=== PATIENT | male | born 1940 | race Two or more races ===

== ENCOUNTER 2018-07-14 12:39 | Emergency (ER) | payer MEDICARE ==
[2018-07-14 12:44] VITALS: BMI 27.6
[2018-07-14 12:47] VITALS: TEMP 98
--- NOTE | 2018-07-14 14:11 | ED PDOC ---
Arrival/HPI - General Time Seen by Provider: 07/14/18 12:54 Historian: Patient - History of Present Illness Narrative History of Present Illness (Text): 07/14/18 13:11 77 year old male, with past medical history of hypertension, presents to the Emergency department accompanied by son complaining of left sided hip pain since 2 weeks. Patient reports falling on his right side while shoveling snow 2 weeks ago but denies any immediate injury or discomfort at the time. Patient denies hitting his head or any loss of consciousness at the time. Patient informs experiencing pain to his left hip radiating to his left leg few days following the incident, for which he was prescribed pain medications by his PMD. As per patient, symptoms were unimproved after the pain medication prompting him to present to the Emergency department for medical evaluation. Patient denies any other associated somatic complaints. Patient denies any difficulty ambulating, fevers, chills, headache, dizziness, chest pain, shortness of breath, dyspnea on exertion, cough, abdominal pain, nausea, vomiting, diarrhea, neck pain, or any other complaints. PMD: Dr. Hagen Time/Duration: > week Symptom Onset: Gradual Symptom Course: Unchanged Quality: Aching Activities at Onset: Light Context: Home Past Medical History - Provider Review Nursing Documentation Reviewed: Yes - Infectious Disease Hx of Infectious Diseases: None - Cardiac Hx Cardiac Disorders: Yes Hx Hypertension: Yes - Pulmonary Hx Respiratory Disorders: No - Neurological Hx Neurological Disorder: No - HEENT Hx HEENT Disorder: No - Renal Hx Renal Disorder: No - Endocrine/Metabolic Hx Endocrine Disorders: No - Hematological/Oncological Hx Blood Disorders: No - Integumentary Hx Dermatological Disorder: No - Musculoskeletal/Rheumatological Hx Musculoskeletal Disorders: No - Gastrointestinal Hx Gastrointestinal Disorders: Yes Other/Comment: hernia - Genitourinary/Gynecological Hx Genitourinary Disorders: No - Psychiatric Hx Psychophysiologic Disorder: No Hx Substance Use: No - Anesthesia Hx Anesthesia: Yes Hx Anesthesia Reactions: No Hx Malignant Hyperthermia: No Family/Social History - Physician Review Nursing Documentation Reviewed: Yes Family/Social History: Unknown Family HX Smoking Status: Never Smoked Hx Alcohol Use: No Hx Substance Use: No Allergies/Home Meds Allergies/Adverse Reactions: Allergies No Known Allergies Allergy (Verified 08/03/16 13:56) Home Medications: Home Meds Medication Instructions Recorded Confirmed Amlodipine/Valsartan 1 tab PO DAILY 08/03/16 07/14/18 [Amlodipine-Valsartan 5-320 mg] RX: Omeprazole 40 mg PO DAILY 07/14/18 07/14/18 RX: tiZANidine [Zanaflex] 4 mg PO DAILY 07/14/18 07/14/18 Tramadol HCl [Ultram] 50 mg PO DAILY 07/14/18 07/14/18 Review of Systems - Physician Review All systems were reviewed & negative as marked: Yes - Review of Systems Constitutional: absent: Fevers Respiratory: absent: SOB, Cough Cardiovascular: absent: Chest Pain Gastrointestinal: absent: Abdominal Pain, Diarrhea, Nausea, Vomiting Genitourinary Male: absent: Dysuria, Urinary Output Changes Musculoskeletal: Other (left sided hip pain) Neurological: absent: Headache, Dizziness Physical Exam Vital Signs Reviewed: Yes Vital Signs Temp Pulse Resp BP Pulse Ox 07/14/18 12:39 98 F 83 18 187/93 H 96 Temperature: Afebrile Blood Pressure: Hypertensive Pulse: Regular Respiratory Rate: Normal Appearance: Positive for: Well-Appearing, Non-Toxic, Comfortable Pain Distress: None Mental Status: Positive for: Alert and Oriented X 3 - Systems Exam Head: Present: Atraumatic, Normocephalic Pupils: Present: PERRL Extroacular Muscles: Present: EOMI Conjunctiva: Present: Normal Neck: Present: Normal Range of Motion Respiratory/Chest: Present: Clear to Auscultation, Good Air Exchange. No: Respiratory Distress, Accessory Muscle Use Cardiovascular: Present: Regular Rate and Rhythm, Normal S1, S2. No: Murmurs Abdomen: No: Tenderness, Distention, Peritoneal Signs Back: Present: Pain with Leg Raise (Positive straight left leg test. No stepoffs.). No: Midline Tenderness Upper Extremity: Present: Normal Inspection. No: Cyanosis, Edema Lower Extremity: Present: Tenderness (Left extremity tenderness). No: Edema Neurological: Present: GCS=15, CN II-XII Intact, Speech Normal Skin: Present: Warm, Dry, Normal Color. No: Rashes Psychiatric: Present: Alert, Oriented x 3, Normal Insight, Normal Concentration Medical Decision Making ED Course and Treatment: 07/14/18 13:11 Impression: 77 year old male presents to the Emergency department complaining of left sided hip pain. r/o fx vs sciatica. Plan: -- Tylenol -- X-ray of Left Femur -- X-ray of hip -- X-ray of LS -- Reassess and disposition Prior Visits: Notes and results from previous visits were reviewed. Progress Notes: 07/14/18 16:08 X-rays reviewed by radiologist, shows negative findings. 07/14/18 17:01 xr neg as per radiologist. pain improevd. exam consistent with sciatica. advise outpt fu and return precautions. - RAD Interpretation Radiology Orders: 07/14/18 13:11 Femur Left [FEMUR MIN 2 VIEWS LT] [RAD] Stat HIP MIN 4V W/ PELVIS LT [RAD] Stat LS SPINE AP/LAT [RAD] Stat - Medication Orders Current Medication Orders: Discontinued Medications Acetaminophen (Tylenol 325mg Tab) 975 mg PO STAT STA Stop: 07/14/18 13:12 Last Admin: 07/14/18 13:29 Dose: 975 mg MAR Pain/Vitals Document 07/14/18 13:29 EB ([facility]14[facility]18 13[facility]29 [id number] Pain Reassessment Is This A Pain ReAssessment? No Sleep Is patient sleeping during reassessment? No Presence of Pain Presence of Pain Yes Pain Scale Used Protocol: PSCALES Pain Scale Used Numeric Location Left, Right or Bilateral Left Pain Location Body Site Hip Intensity 8 Scale Used Numeric - Scribe Statement The provider has reviewed the documentation as recorded by the Scribe Miladis Garcia. All medical record entries made by the Scribe were at my direction and personally dictated by me. I have reviewed the chart and agree that the record accurately reflects my personal performance of the history, physical exam, medical decision making, and the department course for this patient. I have also personally directed, reviewed, and agree with the discharge instructions and disposition. Disposition/Present on Arrival - Present on Arrival Any Indicators Present on Arrival: No History of DVT/PE: No History of Uncontrolled Diabetes: No Urinary Catheter: No History Surgical Site Infection Following: None - Disposition Have Diagnosis and Disposition been Completed?: Yes Diagnosis: Fall, Back pain, Hip pain Disposition: HOME/ ROUTINE Disposition Time: 12:00 Patient Problems: Current Active Problems Problem Status Onset Back pain Acute Fall Acute Hip pain Acute Condition: STABLE Discharge Instructions (ExitCare): Low Back Pain in Adults, Preventing Falls in the Older Adult, Hip Pain in Older People, Hip Pain Additional Instructions: follow up with your doctor and specailist. you willneed further testing and imaging (MRI) as an outpatient. return to any er with worsening symptoms or concerns. Prescriptions: Cyclobenzaprine [Cyclobenzaprine HCl] 10 mg PO DAILY PRN #10 tab PRN Reason: Muscle Spasm RX: Naproxen 500 mg PO BID PRN #14 tablet PRN Reason: Pain, Mild (1-3) Referrals: [facility] [Outside] - [place] up with primary [facility] [place] - Follow up with primary Chapo Reza MD [Staff Provider] - Follow up with primary
--- NOTE | 2018-07-14 14:46 | RAD ---
Date of service: 07/14/2018 PROCEDURE: Radiographs of the Lumbar Spine. HISTORY: trauma COMPARISON: No prior. FINDINGS: BONES: Normal alignment. No listhesis. No fracture. DISC SPACES: Unremarkable. OTHER FINDINGS: None. IMPRESSION: Unremarkable radiographs of the lumbar spine.
--- NOTE | 2018-07-14 14:47 | RAD ---
PROCEDURE: Left Hip and pelvis x-ray Radiographs. HISTORY: trauma COMPARISON: None. FINDINGS: BONES: Normal. No fracture. JOINTS: Normal. SOFT TISSUES: Normal. OTHER FINDINGS: None. IMPRESSION: Negative study
--- NOTE | 2018-07-14 14:47 | RAD ---
Date of service: 07/14/2018 PROCEDURE: Left Femur Radiographs. HISTORY: trauma COMPARISON: None. TECHNIQUE: AP and Lateral Radiographs of the left femur. FINDINGS: FEMUR: Normal. No fracture. SOFT TISSUES: Normal. OTHER FINDINGS: None. IMPRESSION: Unremarkable radiographs of the left femur.
[2018-07-14 17:41] VITALS: BP 156/90; PULSE 78; RESP 17; O2SAT 97
== END 2018-07-14 16:45 | disposition home or self-care (01) ==
LOC: ED 12:39
DX: M25.552 Pain in left hip (principal); M54.9 Dorsalgia, unspecified; I10 Essential (primary) hypertension